=== PATIENT | female | born 1955 | race Caucasian/White ===

== ENCOUNTER 2016-09-05 14:53 | Emergency (ER) | payer BC ==
[2016-09-05 15:35] VITALS: BP 142/80; PULSE 74; RESP 14; TEMP 98.6; O2SAT 94
[2016-09-05] MEDS ORDERED: ONDANSETRON DISINTEGRATING 4 MG TAB ONE (15:38)
--- NOTE | 2016-09-05 15:57 | CPEKG ---
Heart Rate: 66 RR Interval: 909 P-R Interval: 168 QRSD Interval: 86 QT Interval: 400 QTC Interval: 420 P [place]: 39 QRS [place]: 3 T Wave [place]: 20 EKG Severity - ABNORMAL ECG - EKG Impression: SINUS RHYTHM EKG Impression: BORDERLINE R WAVE PROGRESSION, ANTERIOR LEADS EKG Impression: NONSPECIFIC T ABNORMALITIES, ANTERIOR LEADS Electronically Signed By: Maira Jo 05-Sep-2016 18:11:01
[2016-09-05 16:35] LABS: COLOR YELLOW; LEUKOCYTE ESTERASE,URINE NEGATIVE (NEGATIVE); NITRITE,URINE NEGATIVE (NEGATIVE)
[2016-09-05 16:53] LABS: MUCUS TRACE /lpf (NONE-1+); RBC,URINE NONE SEEN /hpf (0-3); WBC,URINE OCCASIONAL /hpf (0-3)
--- NOTE | 2016-09-05 17:27 | UCPHY ---
[id number]/11/17 15:14 HPI/ROS: CHIEF COMPLAINT: Dysuria, urgency and frequency with urination, palpitation HISTORY OF PRESENT ILLNESS: 60-year-old female presents to Urgent Care complaining of dysuria, urgency and frequency with urination over last few days. She has never had a urinary tract infection in the past. Denies abdominal or back pain. No nausea or vomiting. No known fevers or chills. Patient also reports her heart beating fast over last 4 evenings. She has no pain in her chest associated with this. She does not feel short of breath. She does report that she has become quite anxious about this. No back pain. No neck pain. No reported trauma. No family history of cardiac problems per the patient. REVIEW OF SYSTEMS: Constitutional: No fever, no chills. Eyes: No double or blurry vision. ENT: No sore throat. Respiratory: No cough, no shortness of breath. Cardiac: Palpitations as above. No chest pain. Gastrointestinal: No abdominal pain, vomiting or diarrhea. Genitourinary: Dysuria, urgency, frequency with urination Musculoskeletal: No neck or back pain. Skin: No rashes. Neurological: No headache. (Noni Hawley) Past Medical/Surgical History: Negative (Noni Hawley) Social History: and lives in [place]. She works at [employer] (Noni Hawley) Physical Exam: General Appearance: Alert, no distress. Afebrile. 94% on room air. 142/80 Eyes: Pupils equal and round. Extraocular motions are all intact. ENT: Mouth: Mucous membranes moist. Respiratory: No wheezing, rhonchi, or rales, lungs are clear to auscultation. Cardiovascular: Regular rate and rhythm. Gastrointestinal: Abdomen is soft and nontender, no masses, no rebound or guarding, bowel sounds normal. No CVA tenderness bilaterally. Neurological: Alert and oriented x 3, cranial nerves II through XII grossly intact Skin: Warm and dry, no rashes. Musculoskeletal: Nontender to palpate along the cervical, thoracic or lumbar spine. Neck is supple. Extremities: Full range of motion and no peripheral edema. Psychiatric: Patient is oriented X 3, there is no agitation. (Noni Hawley) Constitutional: Initial Vital Signs Temperature (C) 37 C 09/05/16 15:28 Heart Rate 74 09/05/16 15:28 Respiratory Rate 14 09/05/16 15:28 Blood Pressure 142/80 H 09/05/16 15:28 O2 Sat (%) 94 09/05/16 15:28 O2 Delivery Mode Room Air Allergies/Adverse Reactions: Penicillins Allergy (Severe, Verified 11/29/10 21:57) HEART PALPITATIONS Home Medications: Medication Instructions Recorded Acetaminophen [Tylenol 325mg (*)] 325 - 650 mg PO Q4 PRN #0 tab 09/21/15 Aspirin EC [Aspirin EC 325 mg (*)] 325 mg PO BID #0 tab 09/21/15 HYDROcodone/APAP 10/325 [[place] 2 tab PO Q6 PRN #90 tab 09/21/15 10/325 (*)] Ondansetron Odt [Zofran Odt 4 mg 4 - 8 mg PO Q6 PRN #20 tab 09/21/15 (*)] Sennosides/Docusate Sodium 1 - 2 tab PO BID #0 tab 09/21/15 [Senokot-S] celeCOXIB [Celebrex (*)] 200 mg PO DAILY #30 cap 09/21/15 traMADol [Ultram 50 mg (*)] 100 mg PO BID #60 tab 09/21/15 Ciprofloxacin [Cipro 500 mg] 500 mg PO BID #6 tab 09/05/16 Phenazopyridine HCl [Pyridium] 200 mg PO Q8PRN PRN #6 tab 09/05/16 Medical Decision Making - Diagnostics EKG Interpretation: EKG was reviewed by Dr. Maira Jo, see interpretation in trace master. ( Noni Hawley) 12 lead EKG is interpreted in Trace master View by emergency department physician. There are nonspecific T-wave abnormalities anteriorly. Sinus rhythm with a rate of 66. (Maira Jo) ED Course/Re-evaluation: 60-year-old female presents to Urgent Care complaining of dysuria, urgency and frequency with urination for the last few days. Urinalysis reveals no obvious signs of infection although the patient is very well hydrated with specific gravity of less than 1.005. I explained to the patient that it was possible that she had an early UTI which was difficult to tell from her dilute urine. Urine cultures pending. She will be started on Cipro since she has a penicillin allergy and she was also given Pyridium for the dysuria and urinary frequency. The patient also complained of palpitations at night. She had no associated chest pain or difficulty breathing with this. Her EKG revealed nonspecific ST T wave abnormalities. Her troponin was negative. Her chemistries were unremarkable. No elevation of her complete blood cell count. I encouraged close follow-up with primary care provider. She was also given the name of Dr. Anthony Reeder, [facility] bobbin inspector, to follow up with. I encouraged her to return or go to the emergency department if she had associated chest pain, difficulty breathing, or if she felt worse in any way. She was comfortable with this plan. (Noni Hawley) Differential Diagnosis: Including but not limited to urinary tract infection, pyelonephritis, kidney stone, acute appendicitis (Noni Hawley) Other Provider: The patient was evaluated and managed by the physician grants assistant. I have reviewed this chart and I agree with the findings and plan of care as documented , as indicated by my signature. I am the secondary supervising physician. ( Maira Jo) - Data Points Laboratory Results: Laboratory Results 09/05/16 17:20 09/05/16 17:20 09/05/16 09/05/16 17:20 16:30 WBC 7.51 10^3/uL (3.80-9.50) RBC 3.95 L 10^6/uL (4.18-5.33) Hgb 12.3 L g/dL (12.6-16.3) Hct 36.7 L % (38.0-47.0) MCV 92.9 fL (81.5-99.8) MCH 31.1 pg (27.9-34.1) MCHC 33.5 g/dL (32.4-36.7) RDW 12.9 % (11.5-15.2) Plt Count 341 10^3/uL (150-400) MPV 10.3 fL (8.7-11.7) Neut % (Auto) 56.3 % (39.3-74.2) Lymph % (Auto) 35.2 % (15.0-45.0) [place] % (Auto) 6.9 % (4.5-13.0) Eos % (Auto) 0.8 % (0.6-7.6) Baso % (Auto) 0.5 % (0.3-1.7) Nucleat RBC Rel Count 0.0 % (0.0-0.2) Absolute Neuts (auto) 4.23 10^3/uL (1.70-6.50) Absolute Lymphs (auto) 2.64 10^3/uL (1.00-3.00) Absolute Monos (auto) 0.52 10^3/uL (0.30-0.80) Absolute Eos (auto) 0.06 10^3/uL (0.03-0.40) Absolute Basos (auto) 0.04 10^3/uL (0.02-0.10) Absolute Nucleated RBC 0.00 10^3/uL (0-0.01) Immature Gran % 0.3 % (0.0-1.1) Immature Gran # 0.02 10^3/uL (0.00-0.10) Sodium 142 mEq/L (134-144) Potassium 4.1 mEq/L (3.5-5.2) Chloride 105 mEq/L (97-110) Carbon Dioxide 26 mEq/l (22-31) Anion Gap 11 mEq/L (8-16) BUN 15 mg/dL (7-23) Creatinine 0.7 mg/dL (0.6-1.0) Estimated GFR > 60 Glucose 97 mg/dL (70-100) Calcium 9.4 mg/dL (8.5-10.4) Troponin I < 0.012 ng/mL (0-0.034) Urine Color YELLOW Urine Appearance CLEAR Urine pH 5.0 (5.0-7.5) Ur Specific Salol <= 1.005 (1.002-1.030) Urine Protein NEGATIVE (NEGATIVE) Urine Ketones NEGATIVE (NEGATIVE) Urine Blood NEGATIVE (NEGATIVE) Urine Nitrate NEGATIVE (NEGATIVE) Urine Bilirubin NEGATIVE (NEGATIVE) Urine Urobilinogen 0.2 EU (0.2-1.0) Ur Leukocyte Esterase NEGATIVE (NEGATIVE) Urine RBC NONE SEEN /hpf (0-3) Urine WBC OCCASIONAL /hpf (0-3) Ur Epithelial Cells TRACE /lpf (NONE-1+) Urine Mucus TRACE /lpf (NONE-1+) Urine Glucose NEGATIVE (NEGATIVE) Medications Given: Discontinued Medications Phenazopyridine HCl (Pyridium) 200 mg PO EDNOW ONE Stop: 09/05/16 17:59 Last Admin: 09/05/16 18:00 Dose: 200 mg Departure - Departure Disposition: Home, Routine, Self-Care Clinical Impression: Urinary frequency, Dysuria, Palpitations Condition: Good Instructions: Dysuria (ED), Palpitations (ED) Additional Instructions: Cipro 5 mg twice daily for 3 days. Pyridium up to 3 times daily for symptoms of burning with urination. Return if he develops fever, vomiting, back pain, or if you feel worse in any way. You should follow up with your primary care provider and cardiology regarding the palpitations. Return if you develop associated chest pain especially pain in your chest with activity or exertion. Referrals: Dominick Cano MD [Primary Care Provider] - 1-2 days without fail Hugo Reeder MD [Medical Doctor] - As per Instructions ([facility] at [facility]) Prescriptions: Ciprofloxacin [Cipro 500 mg] 500 mg PO BID #6 tab Phenazopyridine HCl [Pyridium] 200 mg PO Q8PRN PRN #6 tab PRN Reason: P.r.n. dysuria - PQRS PQRS Measurement: Not applicable (Noni Hawley
[2016-09-05 17:29] LABS: ADD DIFF? NO; ADD MORPH? NO; ADD SCAN? NO; FRAGMENT RBC FLAG 0 (0-99); LEFT SHIFT FLG 0 (0-99); LIPEMIA HEMOLYSIS FLAG 80 (0-99); MEAN CELL HEMOGLOBIN 31.1 pg (27.9-34.1); PLATELET CLUMPS FLAG 0 (0-99)
[2016-09-05 17:46] LABS: % IMMATURE GRANULYOCYTES 0.3 % (0.0-1.1); ABSOLUTE IMMATURE GRANULOCYTES 0.02 10^3/uL (0.00-0.10); ATYPICAL LYMPHOCYTE FLAG 10 (0-99); HEMATOCRIT 36.7 % (38.0-47.0); HEMOGLOBIN 12.3 g/dL (12.6-16.3); MEAN CELL HEMOGLOBIN CONCENTR. 33.5 g/dL (32.4-36.7); MEAN CELL VOLUME 92.9 fL (81.5-99.8); MEAN PLATELET VOLUME 10.3 fL (8.7-11.7); PLATELET COUNT 341 10^3/uL (150-400); RED BLOOD CELL COUNT 3.95 10^6/uL (4.18-5.33); RED CELL DISTRIBUTION WIDTH 12.9 % (11.5-15.2)
[2016-09-05] MEDS ORDERED: PHENAZOPYRIDINE HCL 200 MG TAB ONE (17:53)
[2016-09-05 17:55] LABS: TROPONIN I < 0.012 ng/mL (0-0.034)
[2016-09-05] MEDS ORDERED: PHENAZOPYRIDINE HCL 200 MG TAB PO ONE (17:58)
[2016-09-05 18:06] LABS: ANION GAP 11 mEq/L (8-16); CALCIUM 9.4 mg/dL (8.5-10.4); CARBON DIOXIDE 26 mEq/l (22-31); CHLORIDE 105 mEq/L (97-110); CREATININE 0.7 mg/dL (0.6-1.0); GLOMERULAR FILTRATION RATE > 60; GLUCOSE 97 mg/dL (70-100); POTASSIUM 4.1 mEq/L (3.5-5.2); SODIUM 142 mEq/L (134-144)
== END 2016-09-05 18:57 | disposition home or self-care (01) ==
LOC: CED 14:53
DX: R30.0 Dysuria (principal); R35.0 Frequency of micturition; R00.2 Palpitations; Z88.0 Allergy status to penicillin
CPT/HCPCS: 80048-PO; 81003-PO; 81015-PO; 84484-PO; 85025-PO; 93010-PO; 99215-PO; G0463-PO